=== PATIENT | female | born 1995 | race Caucasian/White ===

== ENCOUNTER → 2019-02-19 | Outpatient (CLI) | payer OTHER | LOC: M.ULTRA 08:00 | DX: K82.8 Other specified diseases of gallbladder (principal); K21.9 Gastro-esophageal reflux disease without esophagitis ==

== ENCOUNTER → 2019-03-31 | Outpatient (CLI) | payer OTHER | LOC: M.NUC 03-27 13:00 | DX: R10.10 Upper abdominal pain, unspecified (principal); R63.4 Abnormal weight loss ==